=== PATIENT | female | born 1995 | race Caucasian/White ===

== ENCOUNTER 2023-03-22 08:07 | Emergency (ER) | payer MEDICAID ==
[~2023-03-22] VITALS: Ht 175.3 cm; Wt 58.8 kg
[2023-03-22 08:39] LABS: URINE HCG NEGATIVE (NEG)
[2023-03-22 08:46] LABS: CLARITY,URINE CLOUDY (Clear); COLOR,URINE YELLOW (Yellow); GLUCOSE, URINE NEGATIVE (Neg); KETONES,URINE NEGATIVE (Neg); LEUKOCYTE ESTERASE ,URINE NEGATIVE (Neg); NITRITES, URINE NEGATIVE (Neg); OCCULT BLOOD,URINE LARGE (Neg); PROTEIN,URINE 100 mg/dl (Neg); UROBILINOGEN,URINE 0.2 E.U/dL (0.2-1.0)
[2023-03-22 08:52] LABS: BASOPHILS % (AUTO) 0.2 % (0-1); EOSINOPHILS % (AUTO) 0 % (0-6); HEMATOCRIT 40.8 % (35.0-45.0); HEMOGLOBIN 13.9 g/dl (12.0-16.0); LYMPHOCYTES # (AUTO) 0.8 X10'3 (1.1-4.8); LYMPHOCYTES % (AUTO) 5.8 % (21-51); MEAN CORPUSCULAR HEMOGLOBIN 30.1 PG (27.0-31.0); MEAN CORPUSCULAR VOLUME 88.3 FL (78-98); MONOCYTES # (AUTO) 0.8 X10'3 (0-0.9); MONOCYTES % (AUTO) 5.8 % (2-12); NEUTROPHILS # (AUTO) 11.6 X10'3 (1.8-7.7); NEUTROPHILS % (AUTO) 88.2 % (42-75); PLATELET COUNT 224 X10'3 (140-440); RED BLOOD COUNT 4.62 X10'6 (4.20-5.60); RED CELL DISTRIBUTION WIDTH 12.8 % (11.5-14.5); WHITE BLOOD COUNT 13.1 X10'3 (4.5-11.0)
[2023-03-22 08:54] LABS: UA COLLECTION TYPE CLN CATCH MIDSTREAM
[2023-03-22 08:55] LABS: SQUAMOUS EPITHELIAL CELL,UR MANY /LPF (FEW)
[2023-03-22] MEDS ORDERED: normal saline 1000ML IV soln IV ONE (08:55)
[2023-03-22 08:56] LABS: BACTERIA,URINE 1+ /HPF (Neg); HYALINE CASTS 0-3 /LPF (NEGATIVE); MUCUS STRANDS FEW /LPF (Neg)
[2023-03-22 09:08] LABS: ALANINE AMINOTRANSFERASE 22 U/L (12-78); ALBUMIN 3.9 G/DL (3.4-5.0); ALBUMIN/GLOBULIN RATIO 1.1 (1.1-1.5); ALKALINE PHOSPHATASE 82 IU/L (46-116); ANION GAP 13 (8-16); ASPARTATE AMINO TRANSFERASE 20 U/L (10-37); BILIRUBIN,TOTAL 0.6 MG/DL (0.1-1.0); BLOOD UREA NITROGEN 12 MG/DL (7-18); BUN/CREATININE RATIO 10.3 (10.0-20.0); CALCIUM 8.7 MG/DL (8.5-10.1); CHLORIDE 100 MMOL/L (99-107); CREATININE 1.16 MG/DL (0.40-0.90); GLUCOSE 120 MG/DL (70-104); LIPASE < 50 U/L (73-393); POTASSIUM 3.2 MMOL/L (3.5-5.1); SODIUM 135 MMOL/L (135-145); TOTAL CARBON DIOXIDE 22.3 MMOL/L (24-32); TOTAL PROTEIN 7.5 G/DL (6.4-8.2); eGFR 56 ML/MIN
--- NOTE | 2023-03-22 10:36 | NUR ---
pt up to restroom. given specimen cup to try and obtain a urine for culture. last sample was rejected.
[2023-03-22 11:22] VITALS: BP 122/77; PULSE 89; RESP 18; TEMP 97.7; O2SAT 100
[2023-03-22] MEDS ORDERED: metroNIDAZOLE 500mg tablet PO ONE (13:15)
[2023-03-22] MEDS ORDERED: normal saline 1000ml 1,000 ML IV ONE (13:15)
[2023-03-22] MEDS ORDERED: ciprofloxacin lact 400MG/200ML 200 ML IV ONE (13:15)
[2023-03-22] MEDS ORDERED: LOPE2CAP PO (13:40)
[2023-03-22] MEDS ORDERED: METR-159 PO (13:40)
[2023-03-22] MEDS ORDERED: CIPR-202 PO (13:40)
== END 2023-03-22 15:14 | disposition home or self-care (01) ==
LOC: ER 08:08
DX: K52.9 Noninfective gastroenteritis and colitis, unspecified (principal); Z79.899 Other long term (current) drug therapy
CPT/HCPCS: 36415; 74176; 76705; 76856; 80053; 81001; 81025; 83605; 83690; 84145; 85025; 87040; 87088; 93976; 96361; 96365; 99285; J0744; J7030